=== PATIENT | male | born 1985 | race African-American/Black ===

== ENCOUNTER 2016-10-10 16:04 | Emergency (ER) | payer OTHER ==
--- NOTE | ~2016-10-10 | US115 ---
[facility] A Service of [facility] RADIOLOGY TEXT RESULTS PATIENT: FRANKIE AVERY LOCATION: [place] : 85 UNIT #: [id number] AGE: [address]: Enid Blackman APRN SEX: M ORDER DR: [id number] [facility] [address] [place], [place] [address] [id number] MR#: [id number] Acc #: [id number] NAME: FRANKIE AVERY : 1985 SEX: M STUDY DATE/TIME: 10/10/2016 16:42 UNIT: CFAL ROOM: STUDY DESCRIPTION: US Scrotum and Contents Attending Physician: Enid Blackman A.P.R.N. Ordering Physician: Ed Luis Trinh M.D. Primary Care Physician: Primary Care Physician No MEDICAL IMAGING REPORT This report is preliminary unless electronic signature is present EXAM Scrotal ultrasound INDICATION Generalized right scrotal pain and fullness for the past day. PROCEDURE Chapman-scale and Doppler imaging of the scrotum and scrotal contents. COMPARISON 09/10/2009 FINDINGS Right testicle measures 4.6 cm x 2.9 cm x 3.3 cm. Left testicle measures 4.4 cm x 2.0 cm x 2.8 cm. No mass. Flow within normal limits. There are images of the upper scrotum at the midline and to the right that show increased echotexture. Suspected to represent herniated fat. IMPRESSION 1. Suspected fat-containing inguinal hernia extending into the upper right hemiscrotum. This was present on the previous study. 2. The testicles have an unremarkable appearance. Dictated by... Delbert Raymundo M.D. THIS IS AN ELECTRONICALLY VERIFIED REPORT Delbert Raymundo M.D. at 10/11/2016 7:14 AM ALYD/lance [facility] A Service of [facility] RADIOLOGY TEXT RESULTS PATIENT: FRANKIE AVERY LOCATION: [place] : 85 UNIT #: [id number] AGE: [address]: Enid Blackman APRN SEX: M ORDER DR: TD: 10/10/2016 22:24 JOB #: [id number] MEDICAL IMAGING REPORT Page 1 of 1 COPY
[2016-10-10 16:38] LABS: URINE SOURCE CLEAN CATCH
[2016-10-10 16:48] LABS: URINE APPEARANCE CLEAR; URINE BILIRUBIN NEG (NEG); URINE BLOOD 1+ (NEG); URINE COLOR DK YELLOW; URINE GLUCOSE NEG (NEG); URINE KETONE 1+ (NEG); URINE LEUKOCYTE ESTERASE NEG (NEG); URINE NITRATE NEG (NEG); URINE PH 5.5 (5-8); URINE PROTEIN NEG (NEG); URINE SPECIFIC GRAVITY 1.035 (1.003-1.035)
[2016-10-10 16:51] LABS: URINE BACTERIA AUWI NEG (NEGATIVE); URINE SQUAMOUS EPITHELIAL CELL NONE SEEN /[HPF]; UWBCS1 AUWI 0-2 (0-5)
[2016-10-10 16:52] LABS: CULTURE INDICATED? NO
[2016-10-13 14:04] LABS: CHLAMYDIA TRACH Not Detected (Not Detected); N GONOR Not Detected (Not Detected)
== END 2016-10-10 17:30 | disposition home or self-care (01) ==
LOC: CFTX 16:04 → CED 16:04 → CFTX 16:24
PROVIDERS: Nurse Practitioner
DX: K40.90 Unilateral inguinal hernia, without obstruction or gangrene, not specified as recurrent (principal); F17.200 Nicotine dependence, unspecified, uncomplicated
CPT/HCPCS: 76870; 81003; 87491; 87591; 93976; 99283